=== PATIENT | male | born 1985 | race Two or more races ===

== ENCOUNTER 2017-09-14 09:41 | Emergency (ER) | payer MEDICAID ==
[~2017-09-14] VITALS: Ht 177.8 cm; Wt 95.3 kg
[2017-09-14 09:45] VITALS: BP 144/87
[2017-09-14] MEDS ORDERED: IBUPROFEN 600 MG TABLET PO ONE ×2 (10:00→10:01)
[2017-09-14] MEDS ORDERED: CYCLOBENZAPRINE 10 MG TABLET PO ONE (10:00)
[2017-09-14] MEDS ORDERED: CYCLOBENZAPRINE 10 MG TABLET ONE (10:01)
== END 2017-09-14 10:05 | disposition home or self-care (01) ==
LOC: ER 09:44
DX: M54.5 Low back pain (principal); F32.9 Major depressive disorder, single episode, unspecified; F17.200 Nicotine dependence, unspecified, uncomplicated
CPT/HCPCS: 99283; A4606; Z7610

== ENCOUNTER 2019-01-20 14:32 | Emergency (ER) | payer MEDICAID, OTHER ==
[~2019-01-20] VITALS: Ht 177.8 cm; Wt 102.5 kg
[2019-01-20 14:32] VITALS: BP 160/107
[2019-01-20] MEDS ORDERED: ACETAMINOPHEN ES 500 MG TABLET ONE (16:16)
[2019-01-20] MEDS: ACETAMINOPHEN ES 500 MG TABLET PO ONE (16:20)
== END 2019-01-20 16:25 | disposition home or self-care (01) ==
LOC: ER 14:41
DX: M54.5 Low back pain (principal); F32.9 Major depressive disorder, single episode, unspecified; F17.200 Nicotine dependence, unspecified, uncomplicated